=== PATIENT | female | born 1940 | race Caucasian/White ===

== ENCOUNTER 2018-01-08 11:03 | Outpatient (CLI) | payer OTHER ==
--- NOTE | 2018-01-08 13:10 | RAD ---
TWO VIEW CHEST: History: Pneumonia. Comparison: 11-11-17 FINDINGS: Lungs are well aerated. Stranding at the right upper lung at the site of the previously noted infiltr ate is seen. No definite infiltrate apparent on the current study. No evidence of vascular congestion . Heart size is normal. Osseous structures unremarkable. IMPRESSION: Parenchymal stranding or scarring at right upper lobe at site of previously described infiltrate. Rec ommend short term follow up to confirm stability. Otherwise no acute process. Code T POS: [facility]
== END 2018-01-08 11:04 | disposition home or self-care (01) ==
LOC: BICRAD 11:03
PROVIDERS: ATTEND Internal Medicine Sleep Medicine
DX: J18.9 Pneumonia, unspecified organism (principal)
CPT/HCPCS: 71046

== ENCOUNTER 2018-11-27 09:45 | Outpatient (CLI) | payer MEDICARE ==
--- NOTE | 2018-11-27 11:31 | RAD ---
BIPHASIC ESOPHAGRAM: HISTORY: Gastroesophageal reflux disease. FINDINGS: Swallowing was grossly normal. There was unobstructed flow of contrast from the esophagus into the st omach. No ulcer, stricture, mass or diverticulum is seen. A 12 mm tablet in the erect position passed promptly from the esophagus into the stomach. No gastroesophageal reflux was demonstrated during the Valsalva maneuver. IMPRESSION: Unremarkable examination. POS: [facility]
== END 2018-11-27 09:46 | disposition home or self-care (01) ==
LOC: RAD 09:45
PROVIDERS: ATTEND Internal Medicine
DX: K21.9 Gastro-esophageal reflux disease without esophagitis (principal); R19.4 Change in bowel habit; K63.5 Polyp of colon
CPT/HCPCS: 74220